=== PATIENT | female | born 1945 | race Caucasian/White ===

== ENCOUNTER → 2023-12-28 09:38 | Outpatient (CLI) | payer MEDICARE, SELFPAY ==
[2023-12-28 11:19] LABS: Add Manual Diff / Slide Review NO; Basophils Absolute Auto 0 /uL (0-100); Basophils Percent Auto 0.5 % (0-2); Eosinophils Absolute Auto 100 /uL (0-450); Eosinophils Percent Auto 1.2 % (2-4); Hematocrit 43.9 % (36-46); Hemoglobin 14.8 g/dL (12.0-16.0); Lymphocytes Absolute Auto 2700 /uL (1100-4500); Lymphocytes Percent Auto 33.6 % (25-40); Mean Corpuscular HGB Conc 33.7 % (30-36); Mean Corpuscular Hemoglobin 31.3 PG (26-34); Mean Corpuscular Volume 92.9 fL (80-100); Monocytes Absolute Auto 600 /uL (0-900); Monocytes Percent Auto 7.2 % (3-14); Neutrophils Absolute Auto 4700 /uL (1500-7000); Neutrophils Percent Auto 57.5 % (50-75); Platelet Count 297 X10^3/uL (150-400); Red Blood Cell Count 4.72 X10^6/uL (4.0-5.2); Red Cell Distribution Width 13.8 % (11.6-14.8); White Blood Cell Count 8.2 X10^3/uL (4.5-11.0)
[2023-12-28 11:44] LABS: BUN Creatinine Ratio 19.7 (6-22); Blood Urea Nitrogen 14 mg/dL (7-17); Calcium 9.8 mg/dL (8.4-10.2); Carbon Dioxide 29 mmol/L (22-32); Chloride 104 mmol/L (98-107); Estimated Glomerular Filt Rate > 60 mL/min (>60); Glucose 84 mg/dL (80-110); HEMOLYSIS < 15 (0-50); Potassium 4.6 mmol/L (3.4-5.1); Sodium 140 mmol/L (137-145)
[2023-12-28 11:46] LABS: Alanine Aminotransferase 25 IU/L (<35); Albumin 4.1 g/dL (3.5-5.0); Albumin Globulin Ratio 1.1 (1.0-2.8); Alkaline Phosphatase 79 U/L (38-126); Aspartate Aminotransferase 27 IU/L (14-36); Bilirubin Total 0.8 mg/dL (0.2-1.3); Bilirubin Unconjugated 0.6 mg/dL (0.0-1.1); Cholesterol 162 mg/dL (140-199); Globulin 3.6 g/dL (1.7-4.1); HDL Cholesterol 55 mg/dL (40-60); HEMOLYSIS < 15 (0-50); LDL Cholesterol Calculated 77 mg/dL (<100); Total Protein 7.7 g/dL (6.3-8.2); Triglycerides 149 mg/dL (35-150)
[2023-12-28 11:59] LABS: Bilirubin Urine UA NEGATIVE (NEGATIVE); Color Urine UA YELLOW; Glucose Urine UA NEGATIVE (Negative); Ketones Urine UA NEGATIVE (NEGATIVE); Leukocyte Esterase Urine UA 1+ (NEGATIVE); Nitrite Urine UA NEGATIVE (Negative); Occult Blood Urine UA NEGATIVE (Negative); Protein Urine UA NEGATIVE (Negative); Specific Gravity Urine UA 1.025 (1.000-1.035); Urobilinogen Urine UA 0.2 E.U./dL (0.2)
[2023-12-28 12:05] LABS: Follicle Stimulating Hormone 30.8 mIU/mL
[2023-12-28 12:11] LABS: TSH w/ Reflex to FT4 1.03 uIU/mL (0.47-4.68)
[2023-12-28 12:20] LABS: Appearance Urine UA Slightly Cloudy; pH Urine UA 5.5 (4.5-8.0)
[2023-12-28 12:21] LABS: Estradiol, Total 16.3 pg/mL
[2023-12-28 13:22] LABS: Bacteria Urine Few (2-10); Culture Indicated Urine Specimen Cultured; RBC Urine 0-1/HPF (0-5/HPF); Squamous Epithelial Cell Urine 0-1 /HPF (0-5/HPF); Urine Volume 10mL (spun); WBC Urine 1-5/HPF (0-5/HPF)
[2023-12-28 17:19] LABS: Hemoglobin A1C% w Est Avg Glu 5.6 % (4.0-6.0)
[2023-12-28 20:08] LABS: C-Reactive Protein Quant < 0.5 mg/dL (<1.0)
== END ==
PROVIDERS: PCP Student in an Organized Health Care Education/Training Program; Referring Provider Student in an Organized Health Care Education/Training Program; Visit Provider Student in an Organized Health Care Education/Training Program
DX: E78.49 Other hyperlipidemia (principal); R23.2 Flushing
CPT/HCPCS: 36415; 80048; 80061; 80076; 81001; 82670; 83001; 83036; 84443; 85025; 86140; 87086; 93010

== ENCOUNTER → 2023-12-28 09:43 | Outpatient (CLI) | payer MEDICARE, SELFPAY ==
--- NOTE | 2023-12-28 10:07 | EKG_ITS ---
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
== END ==
PROVIDERS: PCP Student in an Organized Health Care Education/Training Program; Referring Provider Orthopaedic Surgery; Visit Provider Orthopaedic Surgery
DX: Z01.818 Encounter for other preprocedural examination (principal); Z01.812 Encounter for preprocedural laboratory examination; R73.9 Hyperglycemia, unspecified; N39.0 Urinary tract infection, site not specified; E78.49 Other hyperlipidemia; R23.2 Flushing
CPT/HCPCS: 36415; 80048; 80061; 80076; 81001; 82670; 83001; 83036; 84443; 85025; 86140; 87086; 93005; 93010

== ENCOUNTER 2024-04-03 09:59 | Day surgery (SDC) | payer MEDICARE, SELFPAY ==
[2024-03-28 08:58] VITALS: BMI 27.4
[2024-04-03] VITALS (15 sets, daily range): BP systolic 82–132; BP diastolic 42–63; PULSE 64–94; RESP 12–22; TEMP 35.7–36.7; O2SAT 92–100; BMI 27.4
--- NOTE | 2024-04-03 | DI.RAD.S_ITS ---
PROCEDURE: XR HIP W PEL IF DONE RT 4V INDICATIONS: right anterior hip TECHNIQUE: 2 view(s) of the hip acquired. COMPARISON: None. FINDINGS: Bones: There are no osseous abnormalities. SI and hip joints: Intraoperative digital images show right hip prosthesis in anatomic alignment. The femoral head component is absent on these particular films . Gas soft swelling over the surgical site seen as expected. Older left total hip prosthesis is anatomically aligned Soft tissues: No soft tissue swelling, calcification or mass. IMPRESSION: Right hip prostheses anatomic alignment Dictated by: Gerson Wilhelm M.D. on 04/04/2024 at 10:35 Approved by: Gerson Wilhelm M.D. on 04/04/2024 at 10:36
--- NOTE | 2024-04-03 06:00 | DI.RAD.S_ITS ---
PROCEDURE: XR HIP W PEL IF DONE RT 2V INDICATIONS: AMARILYS TECHNIQUE: AP pelvis and lateral view of the hip acquired. COMPARISON: [facility], CR, XR PELVIS WITH LATERAL HIP RIGHT, 12/21/2023, 11:41. [facility], CR, XR HIP W PEL IF DONE RT 4V, 04/03/2024, 12:26. FINDINGS: Bones: Patient is status post right total hip arthroplasty, with hardware components in expected positions. The hip joint appears congruent. Stable appearance of the left hip arthroplasty. The visualized bony structures appear intact. Soft tissues: Overlying postoperative changes are noted. No suspicious soft tissue densities. IMPRESSION: 1. Expected post-operative appearance of a right hip arthroplasty. 2. Stable appearance of the left hip arthroplasty. Approved by: Taye Cadet M.D. on 04/03/2024 at 14:35
[2024-04-03] MEDS: LACTATED RINGERS 1,000 ML 42 ML IV ×2 (10:48→13:28)
[2024-04-03] MEDS: VANCOMYCIN 1,000 MG in SODIUM CHLORIDE 0.9% 250 ML 250 MG IV (10:49)
[2024-04-03] MEDS: CELECOXIB 200 MG CAPSULE PO (10:51)
[2024-04-03] MEDS: ACETAMINOPHEN 325 MG TABLET 975 MG PO (10:52)
--- NOTE | 2024-04-03 11:13 | PM.PREOP ---
Pre-operative Note Interval Note History & Physical reviewed/Exam performed by Physician: Yes Changes to H&P: No
--- NOTE | 2024-04-03 11:13 | PM.OP.1 ---
Operative Date/Time/Diagnoses Date of procedure: 04/03/24 Time of procedure: 11:40 Pre-op diagnosis: right hip OA Post-op diagnosis: same Procedure & Clinicians Procedure: Right total hip arthroplasty anterior approach Same procedure as scheduled: Yes Indications: The patient has had progressively worsening right hip pain with radiographic changes consistent with arthritis. Non-operative management has failed and the patient has requested total hip replacement. The risks, benefits and alternatives to surgery were discussed with the patient prior to proceeding. Risks discussed included, but were not limited to, failure to relieve pain, leg length discrepancy, dislocation, stiffness, infection, nerve damage, deep venous thrombosis, pulmonary embolism, stroke, coma, heart attack, permanent paralysis and , as well as the potential need for eventual revision of the prosthetic. Surgeon: Yolanda Lea Manager Social Responsibility: Karlie Willis Anesthesia Type: General and Spinal Operative Notes Findings: Severe right hip OA, adequate stability, soft but adequate bone Closure Type: primary Specimen(s): none sent Prosthetic devices, grafts, tissues, transplants, or devices: Lea [employer]hew R3 size 48 cup, neutral poly liner,one 6.5 mm screw, polar stem size 0 standard offset, 32 by -3 cobalt chromium head Estimated Blood Loss (mL): 250 Blood products transfused: none Procedure in detail: The patient was brought to the operating room. Patient was carefully positioned in the supine position. Time-out was performed and antibiotics were given. Anesthesia was induced. She was positioned in the on the table in order to allow hyperextension of the hip. The right lower extremity was prepped and draped in a standard sterile fashion. An anterior right hip incision was made 1 fingerbreadth lateral to the anterior superior iliac spine and extended distally towards the greater trochanter. Dissection was carried out through skin and subcutaneous tissues. Superficial hemostasis was achieved. The fascia over the tensor fascia dariana was defined and incised with a knife. Two Allis clamps were used to grasp the fascia. Tensor fascia dariana was retracted laterally. A gelpi retractor was placed. Dissection was carried out down along the neck. The circumflex vessels were carefully identified and cauterized with the Aqua Mantis. A PA was used during the procedure and was essential for intraoperative retraction and safe implantation of the components. There was good visualization of the femoral neck. A Cobra was placed superior to the neck and the gluteus fibers were carefully stripped from that superior aspect of the capsule. A 2nd retractor was placed along the inferior aspect of the neck. The rectus insertion along the capsule was partially released. A 3rd retractor that was then gently placed over the rim of the acetabulum under the rectus. Capsule was carefully incised and released from the intertrochanteric line circumferentially superior to the mid sagittal line and inferiorly to the mid sagittal line until the lesser trochanter was palpable. A tag stitch was placed both in the superior and inferior limb of the capsular insertion. Along the acetabulum capsule was also released up to the mid sagittal 12:00 position. A portion of the labrum was resected. A saw was used to perform an osteotomy at the level of the intertrochanteric line and the junction of the superior femoral neck leaving approximately 1 finger breath of residual inferior neck above the lesser trochanter. A 2nd cut was made along the femoral neck at the base of the head and a napkin ring of neck was removed. Corkscrew was placed in the femoral head and the head was removed without difficulty. Retractors were then repositioned around the acetabulum. Residual labrum was resected and additional osteophytes were removed. A reamer that was 4 mm below the templated size was placed by hand in the acetabulum and it was reamed to centralize the acetabulum. It was then reamed up to 2 under the templated size and fluoroscopy was brought in to confirm the position of the reaming and depth of reaming. I reamed 1 under the anticipated size. A trial cup was placed and noted that it was appropriately sized and fluoroscopy confirmed position and depth. The component was open and inserted without difficulty fluoroscopic imaging was used to confirm that the cup had been adequately seated and was well positioned. It was further stabilized with a single screw. Neutral poly liner was placed. The cup was tested and noted to be stable. Attention was then directed to the femur. The femur was gently hyperextended additional capsular release was performed as needed in order to allow adequate visualization of the proximal femur with elevation of the femur. Patient was placed in a hyperextended slightly adducted position with maximum external rotation. Box osteotome was used to check for any residual neck as well as sclerotic bone along the trochanter. [place] pepper was placed in the femur. Additional broaching was performed. Canal finder was used to determine the alignment of the canal and position. Size 0-1 broach was placed. The canal was then appropriately broached up to the templated size as long as there was adequate stability of the broach and serial advancement of the broach without excessive impingement. She had a small canal and I was only able to go up to the 0 polar stem broach. Specific attention was directed at avoiding varus attempting to direct the distal aspect of the broach more anteriorly and avoiding excessive anteversion. Trial reduction showed acceptable range of motion, good stability, no posterior impingement, shinto of leg length and appropriate lateral shuck. I also hyperflexed the hip and checked that there was no impingement anteriorly and there was good stability with flexion, adduction and internal rotation. Marcaine and Exparel were injected. The stem was placed without difficulty. Repeat trial reduction and x-ray showed acceptable overall position, length, and no evidence of the femoral fracture. Final head was placed. Wound was meticulously irrigated with normal saline. The hip was reduced and additional Exparel and Marcaine were injected. The capsule was closed with interrupted nonabsorbable sutures. The fascia of the tensor was closed with interrupted and running Vicryl. No drain was placed. Any tensor fascia dariana muscle that appeared to be contused or injured which was a minimal amount was carefully resected. Capsule around the tensor was injected with Exparel and Marcaine. The skin was closed with barbed stitches for the subcutaneous tissue and skin. We also used surgical glue. The wound was dressed sterilely. Brief Betadine soak was also used and was meticulously irrigated with normal saline. Patient was transferred to recovery room in satisfactory condition. Complications: none Post-operative Condition: stable Disposition: Acute Care Plan for aftercare: The patient will be maintained on a standard total hip replacement protocol with weight bearing as tolerated and anterior hip precautions. The patient will receive Eliquis and sequential compression devices for DVT prophylaxis. The patient will be discharged home when safe for the home environment.
[2024-04-03] MEDS: CEFAZOLIN 2 GM/100 ML PREMIX 100 ML IV ×2 (11:42→20:49)
[2024-04-03] MEDS: TRANEXAMIC ACID 1,000 MG VIAL 1000 MG INJ ×2 (11:45→12:31)
--- NOTE | 2024-04-03 12:00 | SUR.OPER ---
Supine on padded [place] table with bilateral legs secured in padded positioning boots and suspended in positioning spars, operative leg in traction per surgeon. Head on one pillow. Arm on non-operative side secured on padded armboard <90 degrees abduction. Arm on operative side padded and resting across chest then secured with tape over sheet. Padded perineal post in place per surgeon.
[2024-04-03] MEDS: BUPIVACAINE LIPOSOME 266 MG/20 ML VIAL INJ (12:08)
[2024-04-03] MEDS: BUPIVACAINE 0.25% W/ EPI 30 ML VIAL 60 ML INJ (12:10)
[2024-04-03] MEDS: HYDROMORPHONE 1 MG INJ IV ×2 (14:28→14:34)
[2024-04-03] MEDS: ONDANSETRON 4 MG/2 ML INJ IV (14:55)
[2024-04-03] MEDS: LACTATED RINGERS 1,000 ML 100 ML IV (15:59)
--- NOTE | 2024-04-03 16:02 | PT-IP ANOTE ---
PT checked on pt at 1340 and pt c/o nausea and not feeling well enough for PT consult/OOB. Will con't PT efforts next date. Left post-op folder in room and ed pt on no hyperextension and LE supine exercises.
[2024-04-03] MEDS: atenoloL 25 MG TABLET 12.5 MG PO (18:34)
--- NOTE | 2024-04-03 18:56 | PC.NURSE ---
1505--rec'd pt from PACU awake and alert; at bedside; pt c/o nausea; was given zofran prior to departure from PACU; right hip dressing CDI; pedal pulses +2 sonia; pt c/o pain just below right knee; ice to hip and knee
--- NOTE | 2024-04-03 19:26 | PC.NURSE ---
1739--pt having multiple episodes of vomiting; Dr Rae notified and orders rec'd; reglan 10mg iv given; pt obtained good relief with zofran
--- NOTE | 2024-04-03 19:27 | PC.NURSE ---
1814--Dr Lea called to check on pt; status report given; pt denies all nausea at this time; tolerating po intake
[2024-04-03] MEDS: APIXABAN 5 MG TABLET PO (20:50)
[2024-04-03] MEDS: GABAPENTIN 300 MG CAPSULE PO (20:50)
[2024-04-03] MEDS: ATORVASTATIN 20 MG TABLET 10 MG PO (20:50)
[2024-04-03] MEDS: DOCUSATE 100 MG CAPSULE PO (20:50)
[2024-04-04] VITALS: BP 135/63; PULSE 87; RESP 18; TEMP 36.4; O2SAT 99
[2024-04-04] MEDS: CEFAZOLIN 2 GM/100 ML PREMIX 100 ML IV (04:55)
[2024-04-04 06:09] LABS: Hematocrit 35.3 % (36-46); Hemoglobin 11.8 g/dL (12.0-16.0)
[2024-04-04] MEDS: HYDROCODONE/ACET 5/325 TABLET 1 TAB PO ×2 (07:41→11:29)
[2024-04-04 08:00] VITALS: BP 120/51; PULSE 77; RESP 18; TEMP 36.2; O2SAT 95
--- NOTE | 2024-04-04 08:47 | P.DS_ITS ---
History of Present Illness History of Present Illness Date Patient Seen: 04/04/24 Time Patient Seen: 08:47 Chief complaint: OPB Narrative: Operative Date/Time/Diagnoses Date of procedure: 04/03/24 Time of procedure: 11:40 Pre-op diagnosis: right hip OA Post-op diagnosis: same Procedure & Clinicians Procedure: Right total hip arthroplasty anterior approach Same procedure as scheduled: Yes Indications: The patient has had progressively worsening right hip pain with radiographic changes consistent with arthritis. Non-operative management has failed and the patient has requested total hip replacement. The risks, benefits and alternatives to surgery were discussed with the patient prior to proceeding. Risks discussed included, but were not limited to, failure to relieve pain, leg length discrepancy, dislocation, stiffness, infection, nerve damage, deep venous thrombosis, pulmonary embolism, stroke, coma, heart attack, permanent paralysis and , as well as the potential need for eventual revision of the prosthetic. Surgeon: Yolanda Lea Sheet Mill Supervisor: Karlie Willis Anesthesia Type: General and Spinal Operative Notes Findings: Severe right hip OA, adequate stability, soft but adequate bone Closure Type: primary Specimen(s): none sent Prosthetic devices, grafts, tissues, transplants, or devices: Lea [employer]hew R3 size 48 cup, neutral poly liner,one 6.5 mm screw, polar stem size 0 standard offset, 32 by -3 cobalt chromium head Estimated Blood Loss (mL): 250 Blood products transfused: none Discharge Providers Provider Discharge Date: 04/04/24 Primary care physician: Lucinda Mike DO Consults: 03/28/24 10:41 Consult to Anesthesiology Routine Comment: Consulting Provider: Anesthesiologist Reason for consultation: Multiple medical per surgeon. 04/03/24 06:00 Consult to Anesthesiology Routine Comment: Consulting Provider: Anesthesiologist Reason for consultation: Regional block for post operative pain control Has provider been notified: No 04/03/24 15:02 Consult to Discharge Planning Routine Comment: Consult to Occupational Therapy Evaluate & Treat Comment: Physician Instructions: Evaluate and treat Consult to Physical Therapy Evaluate & Treat Comment: Physician Instructions: post op AMARILYS protocol Discharge provider: Adeline Rayo PA-C Summary Hospital Course Discharge Diagnosis: Right hip osteoarthritis, s/p right total hip arthroplasty Hospital Course: [facility] course was unremarkable. On the morning of POD# 1, she was feeling well and wanted to go home. She was eating and voiding without difficulty and had been OOB multiple times overnight. She had not yet worked w/ PT. Pain well-controlled with hydrocodone and OTC meds. Eliquis restarted last night. Exam Vital Signs (past 8 hours): Oxygen Delivery Method Room Air Oxygen Flow Rate 1 Narrative Exam Narrative: 4/5 strength in hip flexors, quadriceps, hamstrings; 5/5 PF, DF, EHL on right. Sensation to light touch intact throughout RLE, calf soft and compressible. Aquacel dressing CDI. Objective Labs 04/04/24 05:20 Labs: Laboratory Results - last 24 hr 04/04/24 05:20 Hgb 11.8 L Hct 35.3 L PFSH Medical History (Updated 03/28/24 @ 10:44 by Ciara Devine RN) Arthritis of back History of biliary stent insertion (12/2023) Cholecystitis (12/2023) Arthritis Scoliosis GERD (gastroesophageal reflux disease) Liver lesion (10/06/22) Splenic artery aneurysm (01/12/24) Pulmonary embolism, bilateral (01/12/24) Osteopenia Post-menopausal Overactive bladder Lumbar radiculopathy Atrophic vaginitis Osteoarthritis HLD (hyperlipidemia) HTN (hypertension) Surgical History (Updated 04/04/24 @ 08:51 by Adeline Rayo PA-C) Cataract extraction status of right eye (2003) History of ankle surgery (2007) Cataract extraction status of left eye (2011) S/P IVC filter (01/15/24) History of total left hip replacement (2017) History of colonoscopy (03/2019) Social History household members: spouse Smoking Status: Never smoker alcohol intake: current Discharge Assessment & Plan Assessment and Plan Assessment: Right hip osteoarthritis, s/p right total hip arthroplasty Plan of Treatment: D/c home after PT, multimodal pain control, Eliquis BID for VTE propphylaxis, outpt PT, f/u in office as scheduled. Discharge Plan Discharge Plan Patient Disposition: Home Discharge orders & Medications Discharge Orders: Discharge (Order); Ordered 04/04/24 Ordered By: Adeline Rayo Prescriptions: New hydrocodone-acetaminophen 5-325 mg Tablet 1 tab PO Q4-6H PRN (Reason: Pain, Moderate (4-6)) Qty: 30 0RF Continued atorvastatin 10 mg Tablet 10 mg PO QPM atenolol 25 mg Tablet 12.5 mg PO QPM gabapentin 300 mg Capsule 300 mg PO TID glucosamine-chondroitin 1,500-1,200 mg/30 mL Liquid 30 ml PO BID trospium 60 mg capsule,extended release 24hr 60 mg PO DAILY Eliquis 5 mg Tablet 5 mg PO BID enoxaparin [Lovenox] 40 mg/0.4 mL Syringe 40 mg SUBCUT DAILY Rx Instructions: Per machine oiler - Hold eliquis 3 days prior to surgery. Lovenox on days not taking eliquis perioperatively. Hold lovenox on day of surgery and restart postop 8-12 hours once hemodynamically stable per ortho. Follow up/Referrals: Lucinda Mike DO [Primary Care Provider] - Yolanda Lea MD [Physician] - 04/17/24 2:30 pm (Follow up w/ JAMES Araujo) Diet/Activity/Treatments Diet: Diet as Tolerated Activity: Ambulate multiple times a day. Use a cane or walker as needed. Full weight on leg, anterior hip precautions. Cold/Heat Therapy: Use ice multiple times a day. Skin/Wound/Dressing Care Skin care: Leave dressing on. Okay to shower Report to your healthcare provider any signs of infection, such as:: chills, fever, night sweats, unusual drainage and unusual redness Dressing: May shower. Leave dressing in place until follow up in office. No bathing or otherwise soaking incision. Call the office if the dressing becomes saturated inside. Visit Report/Discharge Packet Instructions: DI for Hip Replacement, DI for Prescription Opioid Use Stand Alone Forms: Patient Portal/API, Surgery Discharge Discharge Data Primary Care Provider: Lucinda Mike Attending Provider: Yolanda Lea
[2024-04-04 08:59] VITALS: O2SAT 98
--- NOTE | 2024-04-04 09:50 | OT.IP.EVAL ---
Current Diagnoses Unilateral primary osteoarthritis, right hip (04/03/24) Presence of unspecified artificial hip joint (04/03/24) Surgery Performed Operation Date: 04/03/24 12:15 Actual Procedures p Total Hip Arthroplasty/Anterior Approach(Right) - Yolanda Lea MD Past Medical History (Last Updated 03/28/24 @ 10:44 by Ciara Devine, RN) Arthritis Arthritis of back Atrophic vaginitis Cholecystitis (12/2023) GERD (gastroesophageal reflux disease) History of biliary stent insertion (12/2023) HLD (hyperlipidemia) HTN (hypertension) Liver lesion (10/06/22) Lumbar radiculopathy Osteoarthritis Osteopenia Overactive bladder Post-menopausal Pulmonary embolism, bilateral (01/12/24) Scoliosis Splenic artery aneurysm (01/12/24) Surgical History (Last Updated 03/28/24 @ 10:44 by Ciara Devine, RN) Cataract extraction status of left eye (2011) Cataract extraction status of right eye (2003) History of ankle surgery (2007) History of colonoscopy (03/2019) History of total left hip replacement (2017) S/P IVC filter (01/15/24) Occupational Therapy Inpatient Evaluation/Re-Eval M1 PT/OT-IP Prior Functional Status Start: 04/04/24 09:52 Freq: NEEDED Status: Active Protocol: Document 04/04/24 09:53 [facility] (Rec: 04/04/24 10:05 [facility] [id number]) Medical Review Prior Functional Status Medical History Reviewed Yes Communication I Mobility and Gait Pt states has been using a SPC in the past 3 weeks. Activities of Daily Living and IADL's Pt needing assist to dress the RLE and has pain during ADL and IADL needs. Social History Household Members spouse Living Arrangements House Number of Stairs To Enter/Railing? NO steps to enter. Home Environment Standard Height Toilet,Walk in Shower Home Equipment Front Wheel Walker,Straight Cane,Shower Seat with Backrest ,Hand Held Shower Additional Social History Comment Pt has an adjustable bed M2 OT-IP Current Condition Start: 04/04/24 09:52 Freq: Status: Active Protocol: Document 04/04/24 09:53 [facility] (Rec: 04/04/24 10:05 [facility] [id number]) Occupational Therapy Current Condition Current Condition Evaluation Date 04/04/24 Treatment Diagnosis S/P R AMARILYS Diagnosis Onset Date 04/03/24 Post Operative Precautions Anterior Hip Precautions No Hip Extension,No Hip External Rotation M3 OT- IP Subjective and Pain Start: 04/04/24 09:52 Freq: Status: Active Protocol: Document 04/04/24 09:53 [facility] (Rec: 04/04/24 10:05 [facility] [id number]) OT- Subjective Occupational Therapy Visit Type Type Initial Evaluation Visit Start Time 09:10 Visit Stop Time 09:50 Occupational Therapy Visit Comments Patient Comments Pt agreed to get up and get dressed. Patient/Caregiver Goals TO go home. OT Pain Assessment Pain When Pain Assessed During Mobility Pain Present Pain Present Pain Reported Location right knee Intensity 4 Scale Used Numeric (0 - 10) M4 OT- IP ADL's Start: 04/04/24 09:52 Freq: Status: Active Protocol: Document 04/04/24 09:53 [facility] (Rec: 04/04/24 10:05 [facility] [id number]) OT ISN-Kese-Uhbjygj General Evaluation Self-Feeding Ability Independent OT ADL-Grooming General Evaluation Grooming Ability Independent OT ADL-Dressing General Eval Upper Body Dressing Ability Independent Lower Body Dressing Ability Minimal Assistance Areas Needing Assistance Underpants/Brief,Socks Comments OT Dressing Comments Able to show pt use of LB dressing equipment to assist with her needs. Educated to dress the RLE first and take out last. Also encouraged her to sit for dressing needs. OT ADL-Toileting Comments OT Toileting Comments Educated pt to be mindful of her RLE positioning needs while wiping. Use of wet ones and pads can be helpful. OT ADL-Bathing Comments OT Bathing Comments Pt will benefit from assist. M5 OT- IP IADL's Start: 04/04/24 09:52 Freq: Status: Active Protocol: Document 04/04/24 09:53 [facility] (Rec: 04/04/24 10:05 [facility] [id number]) OT-Instrumental Activities of Daily Living Home Safety Awareness Awareness of Need for Assistance at Home Good Awareness Ability to Problem Solve Emergency Able to Problem Solve Situations Medication Management Medication Management Comments Pt just a little groggy at this time and best to have supervise needs. Money Management Money Management Comments Pt just a little groggy at this time and best to have supervise needs. Meal Preparation Meal Preparation Caregiver Provides Assist Geophysical Data Technician Geophysical Data Technician Caregiver Provides Assist M6 OT- IP Functional Cognition Start: 04/04/24 09:52 Freq: Status: Active Protocol: Document 04/04/24 09:53 [facility] (Rec: 04/04/24 10:05 [facility] [id number]) Cognitive Factors Limiting Selfcare Function Cognitive Ability Level of Alertness Alert Patient Orientation Name,Age,Birthday,Month,Date, Year,Day of Week,Place, Situation Attention Span Ability Capable of Focused Attention, Capable of Sustained Attention Ability to Follow Commands Able to Follow One Step Commands Safety Awareness Underestimates Need for Assistance Cognitive Comments Cognitive Assessment Comments Pt needing reminders to incorporate her hip precautions for ADL and mobility needs. OT- Vision and Hearing OT- Hearing Assessment OT- Hearing Assessment WFL OT- Vision Assessment Visual Acuity Glasses All The Time Vision Assessment Comments Wears glasses for distance. M7 OT- IP Mobility and Balance Start: 04/04/24 09:52 Freq: Status: Active Protocol: Document 04/04/24 09:53 [facility] (Rec: 04/04/24 10:05 [facility] [id number]) OT- Bed Mobility Assessment Supine to Sit Supine to Sit Assist Minimal Assistance,Head of Bed Elevated,Bedrails Sit to Supine Sit to Supine Assist Minimal Assistance,Head of Bed Elevated,Bedrails Scooting Scooting to Edge of Bed Standby Assistance OT-Transfer Assessment Sit to and From Stand Sit to and from Stand Contact Guard Assistance Transfers Transfer Ability Contact Guard Assistance, Minimal Assistance Technique Transfer Destination Bed,Chair Transfer Technique Stand Step Pivot Devices Transfer Assistive Devices Gait Belt,Front Wheeled Walker Comments Mobility Comments Initially pt wanting to get out of bed via log rolling due to history of back pain and then able to try with HOB and much easier for pt to do as she has an adjustable bed at home. Pt still needing EVIN for RLE. Once on her feet , pt is a bit unsteady and FWW lifting up fro nth ground and needing from CGA to EVIN. OT- Balance Assessment Sitting Balance and Reactions Static Sitting Balance Ability Good Dynamic Sitting Balance Ability Good Standing Balance and Reactions Static Standing Balance Ability Fair Dynamic Standing Balance Ability Fair M8 OT- IP Objective Assessments Start: 04/04/24 09:52 Freq: Status: Active Protocol: Document 04/04/24 09:53 [facility] (Rec: 04/04/24 10:05 [facility] [id number]) OT Gross Range of Motion Upper Extremity Range of Motion ROM Impairments WFL for needs. OT Strength Comments Strength Comments WFL for needs. M9 OT- IP Assessment and Plan Start: 04/04/24 09:52 Freq: Status: Active Protocol: Document 04/04/24 09:53 [facility] (Rec: 04/04/24 10:05 [facility] [id number]) OT Summary Assessment and Plan Potential Rehabilitation Potential Excellent Analytic Complexity at Evaluation Low Summary OT Impairments Pain,Strength,Balance, Functional Mobility,Dressing, Toileting,Bathing,Toilet Transfers,Shower Transfers Progress Towards Goals Progressing Toward Goals Assessment Summary Pt low complexity and pt has very supportive to assist with her needs. Pt needing vc to incorporate her hip precautions for ADL and mobility needs. Pt looking to get a sock aid. Pt to go home with 24/7 assist and outpt PT . 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
[2024-04-04] MEDS: APIXABAN 5 MG TABLET PO (10:04)
[2024-04-04] MEDS: GABAPENTIN 300 MG CAPSULE PO (10:04)
--- NOTE | 2024-04-04 10:15 | PT.IIE ---
Current Diagnoses Unilateral primary osteoarthritis, right hip (04/03/24) Presence of unspecified artificial hip joint (04/03/24) Surgery Performed Operation Date: 04/03/24 12:15 Actual Procedures p Total Hip Arthroplasty/Anterior Approach(Right) - Yolanda Lea MD Surgical History (Last Updated 03/28/24 @ 10:44 by Ciara Devine, RN) Cataract extraction status of left eye (2011) Cataract extraction status of right eye (2003) History of ankle surgery (2007) History of colonoscopy (03/2019) History of total left hip replacement (2017) S/P IVC filter (01/15/24) Medical History (Last Updated 03/28/24 @ 10:44 by Ciara Devine, RN) Arthritis Arthritis of back Atrophic vaginitis Cholecystitis (12/2023) GERD (gastroesophageal reflux disease) History of biliary stent insertion (12/2023) HLD (hyperlipidemia) HTN (hypertension) Liver lesion (10/06/22) Lumbar radiculopathy Osteoarthritis Osteopenia Overactive bladder Post-menopausal Pulmonary embolism, bilateral (01/12/24) Scoliosis Splenic artery aneurysm (01/12/24) Physical Therapy Inpatient Evaluation/Re-Eval M1 PT/OT-IP Prior Functional Status Start: 04/03/24 15:29 Freq: NEEDED Status: Discharge Protocol: Document 04/04/24 10:15 [facility] (Rec: 04/04/24 13:39 [facility] [id number]) Medical Review Prior Functional Status Medical History Reviewed Yes Communication able to make needs known Mobility and Gait pt stated that she was independent with all mobilities and ambulation without AD but started using a SPC for ~ 3-4 weeks due to hp pain Activities of Daily Living and IADL's per OT note: Pt needing assist to dress the RLE and had pain during ADL and IADL needs. Social History Household Members spouse Living Arrangements House Number of Floors (Floors) Two Floors Number of Stairs To Enter/Railing? pt stays on main level of the house no steps to enter Home Environment Standard Height Toilet,Walk in Shower Home Equipment Front Wheel Walker,Straight Cane,Shower Seat with Backrest ,Hand Held Shower Additional Social History Comment Pt has an adjustable bed M1 PT/OT-IP Prior Functional Status Start: 04/04/24 09:52 Freq: NEEDED Status: Discharge Protocol: Document 04/04/24 09:53 [facility] (Rec: 04/04/24 10:05 [facility] [id number]) Medical Review Prior Functional Status Medical History Reviewed Yes Communication I Mobility and Gait Pt states has been using a SPC in the past 3 weeks. Activities of Daily Living and IADL's Pt needing assist to dress the RLE and had pain during ADL and IADL needs. Social History Household Members spouse Living Arrangements House Number of Stairs To Enter/Railing? NO steps to enter. Home Environment Standard Height Toilet,Walk in Shower Home Equipment Front Wheel Walker,Straight Cane,Shower Seat with Backrest ,Hand Held Shower Additional Social History Comment Pt has an adjustable bed M2 PT-IP Current Condition Start: 04/03/24 15:29 Freq: NEEDED Status: Discharge Protocol: Document 04/04/24 10:15 [facility] (Rec: 04/04/24 13:39 [facility] [id number]) Physical Therapy Current Condition Current Condition Evaluation Date 04/04/24 Treatment Diagnosis s/p R AMARILYS anterior; difficulty in walking Onset Date 04/03/24 M3 PT-IP Subjective Start: 04/03/24 15:29 Freq: NEEDED Status: Discharge Protocol: Document 04/04/24 10:15 [facility] (Rec: 04/04/24 13:39 [facility] [id number]) Subjective Physical Therapy Visit Type Type Initial Evaluation Visit Start Time 10:15 Visit Stop Time 10:55 Number of [employer] Visits 0 Physical Therapy Visit Comments Patient Comments agreeable to do PT Therapy Pain Assessment Pain When Pain Assessed At Rest Pain Present Pain Present Pain Reported Location Right Anterior Thigh Intensity 4 Scale Used Numeric (0 - 10) Description Burning Pain Management Techniques Apply Cold,Distraction, Modification of Treatment,Re- positioning,Timing of Activity with Medications M4 PT-IP Mobility and Gait Start: 04/03/24 15:29 Freq: NEEDED Status: Discharge Protocol: Document 04/04/24 10:15 [facility] (Rec: 04/04/24 13:39 [facility] [id number]) PT-Bed Mobility Assessment Supine to Sit Supine to Sit Minimal Assistance,Bedrails Sit to Supine Sit to Supine Minimal Assistance,Bedrails PT-Transfer Assessment Sit to and From Stand Sit to and from Stand Contact Guard Assistance,1 Person Assistance,Use of Upper Extremities Equipment Transfer Assistive Device Gait Belt,Front Wheeled Walker Orthotic/Prosthetic Devices or Brace: No Transfers Transfer Destination Bed,Chair Transfer Technique ambulated Transfer Ability Level of Assist Contact Guard Assistance,1 Person Assistance,Use of Upper Extremities Comments Mobility Comments pt sitting on the chair and spouse in room. obtained PLOF and home set up. pt stated that she just finished with OT . asked pt regarding her hip precautions and pt unable to recall. educated pt and spouse on pt's R hip anterior precautions. pt completed sit to stand from chair CGA and ambulated in room using FWW ~ 25 ft CGA. pt sat on EOB. completed sit<> supine min A for LE elevation and positioning. instructed spouse on how to assist pt. caregiver training conducted. educated spouse on how to use safety belt and how to assist pt. spouse was able to put safety belt on pt. assisted pt with sit to stand and ambulation in room ~ 25 ft using FWW CGA. pt sat on chair . positioned pt on the chair. call light and table placed within reach. pt and spouse without further concerns. Gait Assessment Gait Gait Assistance Required: Contact Guard Assist Distance (Feet) 25 Able to Maintain Weight Bearing Status Yes During Gait Assistive Devices Assistive Device Gait Belt,Front Wheeled Walker Orthotic/Prosthetic Devices or Brace: No Gait Deviations General Gait Pattern Decreased Feet Clearance Factors Limiting Gait Function Factors Limiting Gait Function Decreased Activity Tolerance, Decreased Strength,Difficulty Following Directions,Limited Range of Motion,Poor Safety Awareness PT-Balance Assessment Sitting Balance and Reactions Static Sitting Balance Ability Good Dynamic Sitting Balance Ability Good Standing Balance and Reactions Static Standing Balance Ability Good Dynamic Standing Balance Ability Fair Device Used FWW M5 PT-IP Objective Assessments Start: 04/03/24 15:29 Freq: NEEDED Status: Discharge Protocol: Document 04/04/24 10:15 [facility] (Rec: 04/04/24 13:39 [id number]) Orientation Orientation/Cognition Level of Alertness Alert Orientation Name,Place,Situation Language Function Ability Hard of Hearing Safety Awareness Decreased Safety Awareness Memory Description Short Term Impaired Strength Lower Extremity Strength Assessment Right Impaired Hip 3-/5 Knee 3+/5 Coordination Assessment Gross Coordination Gross Coordination WNL Sensation Assessment Sensation Gross Sensation WNL Muscle Tone Muscle Tone WNL Yes M6 PT-IP Treatment Start: 04/03/24 15:29 Freq: NEEDED Status: Discharge Protocol: Document 04/04/24 10:15 [facility] (Rec: 04/04/24 13:39 [id number]) Physical Therapy Treatment Education Education Provided Precautions,Weight Bearing Status,Safety M7 PT-IP Assessment and Plan Start: 04/03/24 15:29 Freq: NEEDED Status: Discharge Protocol: Document 04/04/24 10:15 [facility] (Rec: 04/04/24 13:39 [facility] [id number]) PT Summary Assessment and Plan Potential Rehabilitation Potential Fair Status of Condition at Evaluation Evolving Summary Impairments Pain,ROM,Strength,Balance, Coordination,Sensation,Tone, Cognition,Bed Mobility, Transfers,Gait,Activity Tolerance Assessment Summary pt is a 78 y/o F s/p R AMARILYS anterior approach POD 1. pt with R anterior hip precautions and is WBAT. pt requiring CGA with mobility using FWW. caregiver training conducted and spouse was able to assist pt safely. pt has outpt PT set up. pt may go home when medically stable. Goals Bed Mobility Goal Independent Transfer Goal Independent,Front Wheeled Walker Gait Goal Independent,Front Wheel Walker Gait Distance 250 Days to Meet Goals 5 Frequency of Treatment Frequency Of Treatment Twice a Day Treatment Plan Physical Therapy Treatment Plan Bed Mobility Training,Transfer Training,Gait Training, Therapeutic Exercise,Balance Retraining,Post Op Education, Discharge Planning,Hot or Cold Pack,Neuromuscular Re-ed, Coordination Retraining,Manual Therapy Precautions Anterior Hip Precautions No Hip Extension,No Hip External Rotation Weight Bearing Status Weight Bearing Status Weight Bear as Tolerated Allowed Weight Bearing Amount (enter % RLE WBAT or #) (%) Recommendations To Nursing Amount of Assist Needed 1 Person Assist Discharge Recommendations PT Discharge Recommendations Home with Assistance, Outpatient PT Transportation Needs at Discharge Private Vehicle
== END 2024-04-04 11:30 | disposition home or self-care (01) ==
LOC: OR 10:00 → AC 10:04
PROVIDERS: PCP Student in an Organized Health Care Education/Training Program; Referring Provider Orthopaedic Surgery; Visit Provider Orthopaedic Surgery
PROC: (CPT 27130; principal; 2024-04-03 12:15)
DX: M16.11 Unilateral primary osteoarthritis, right hip (principal); I10 Essential (primary) hypertension; Z86.711 Personal history of pulmonary embolism; Z79.01 Long term (current) use of anticoagulants; Z96.642 Presence of left artificial hip joint
CPT/HCPCS: 27130; 36415; 73502; 73503; 76000; 85014; 85018; 94762; 97161; 97165; 97530; 97535; C1776; J0666; J0690; J1100; J1171; J1885; J2405; J2704; J3010